=== PATIENT | male | born 1945 | race Caucasian/White ===

== ENCOUNTER 2017-03-07 18:14 | Emergency (ER) | payer OTHER ==
[2017-03-07 18:23] VITALS: BP 135/77; PULSE 66; TEMP 97.6; BMI 25.3
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
[2017-03-07] MEDS ORDERED: KETOROLAC TROMETHAMINE 30 MG/1 ML VIAL IM ONE (19:01)
[2017-03-07] MEDS ORDERED: KETOROLAC TROMETHAMINE 30 MG/1 ML VIAL ONE (19:05)
== END 2017-03-07 20:21 | disposition home or self-care (01) ==
LOC: JERFT 18:14
PROC: 3E0233Z Introduction of Anti-inflammatory into Muscle, Percutaneous Approach (ICD-10-PCS; principal; 2017-03-07)
DX: M54.5 Low back pain (principal); V43.52XA Car driver injured in collision with other type car in traffic accident, initial encounter; Y92.411 Interstate highway as the place of occurrence of the external cause; Y93.89 Activity, other specified; Y99.8 Other external cause status
CPT/HCPCS: 99281-25

== ENCOUNTER → 2018-01-07 | Day surgery (SDC) | payer BC, OTHER ==
[2018-01-06 15:01] VITALS: BMI 25.8
[2018-01-07 12:25] VITALS: TEMP 97.8
[2018-01-07 12:43] VITALS: PULSE 52
[2018-01-07 13:14] VITALS: BP 122/80
--- NOTE | 2018-01-10 17:11 | PATH ---
Surgical Pathology Report Patient Name: BETTYE WARD [facility]. Rec. #: [id number] /Age/Gender: 1945 (Age: 72) / M Account: [id number] Location: U-ENDOSCOPY Taken: 01/07/2018 Received: 01/07/2018 Reported: 01/10/2018 Physicians: Gladis Ruiz M.D. Specimen(s) Received A: BX 2ND PORTION DUODENUM AND BULB B: BX DUODENAL BULB POLYPS C: BX ANTRUM Clinical History Abdominal pain, rule out ulcer Postoperative diagnosis: Duodenal bulb polyps Final Diagnosis A. SECOND PORTION DUODENUM AND BULB, BIOPSY: DUODENAL MUCOSA SHOWING MILD CHRONIC DUODENITIS AND FOCAL HETEROTOPIC GASTRIC MUCOSA IN THE LAMINA PROPRIA. NO EVIDENCE OF CELIAC DISEASE. B. DUODENAL BULB POLYPS, BIOPSY: DUODENAL MUCOSA SHOWING HETEROTOPIC GASTRIC MUCOSA AND JAZMINE'S GLAND HYPERPLASIA IN THE LAMINA PROPRIA. C. ANTRUM, BIOPSY: GASTRIC MUCOSA WITH NO SIGNIFICANT PATHOLOGIC FINDINGS. IMMUNOSTAIN IS NEGATIVE FOR H. PYLORI ORGANISMS. NEGATIVE FOR INTESTINAL METAPLASIA. Electronically Signed Shavonne Pollard M.D. Gross Description A. Received in formalin, labeled "biopsy second portion of duodenum and bulb" are 3 herrera, irregular portions of soft tissue ranging from 0.3-0.6 cm. in greatest dimension. The specimens are submitted in toto in one cassette. B. Received in formalin, labeled "biopsy duodenal bulb polyp" is a herrera, irregular portion of soft tissue measuring 0.3 cm. in greatest dimension. The specimen is submitted in toto in one cassette. C. Received in formalin, labeled "biopsy antrum" are 4 herrera, irregular portions of soft tissue ranging from 0.3-0.6 cm. in greatest dimension. The specimens are submitted in toto in one cassette. 01/07/2018 saudi01/07/2018
== END | disposition home or self-care (01) ==
LOC: JASU-ENDO 10:18
PROVIDERS: ATTEND Internal Medicine Gastroenterology
PROC: 0DB68ZX Excision of Stomach, Via Natural or Artificial Opening Endoscopic, Diagnostic (ICD-10-PCS; 2018-01-07)
PROC: 0DB98ZX Excision of Duodenum, Via Natural or Artificial Opening Endoscopic, Diagnostic (ICD-10-PCS; principal; 2018-01-07 11:00)
DX: K31.7 Polyp of stomach and duodenum (principal); R10.13 Epigastric pain
CPT/HCPCS: 88305-TC; 88342-TC